=== PATIENT | male | born 1980 | race Caucasian/White ===

== ENCOUNTER 2022-05-19 02:01 | Emergency (ER) | payer SELFPAY ==
[2022-05-19] MEDS ORDERED: HYDROcodone/Acetaminophen 5/325 mg Tablet ONE (02:37)
[2022-05-19] MEDS ORDERED: Amoxicillin/Potassium Clav 875 MG TAB ONE (02:37)
== END 2022-05-19 02:56 | disposition home or self-care (01) ==
LOC: MADERS 02:01
DX: K03.81 Cracked tooth (principal); K04.7 Periapical abscess without sinus; K02.9 Dental caries, unspecified; F17.290 Nicotine dependence, other tobacco product, uncomplicated
CPT/HCPCS: 99282

== ENCOUNTER 2022-07-04 18:12 | Emergency (ER) | payer MEDICAID ==
[2022-07-04] MEDS ORDERED: Naproxen 500 MG TAB ONE (18:57)
[2022-07-04] MEDS ORDERED: Clindamycin 150 MG CAP ONE (18:57)
== END 2022-07-04 19:05 | disposition home or self-care (01) ==
LOC: MADERS 18:12
DX: K03.81 Cracked tooth (principal); K02.9 Dental caries, unspecified; K04.7 Periapical abscess without sinus; F17.290 Nicotine dependence, other tobacco product, uncomplicated
CPT/HCPCS: 99283